=== PATIENT | female | born 1990 | race Caucasian/White ===

== ENCOUNTER 2018-04-15 12:27 | Emergency (ER) | payer BC ==
--- NOTE | 2018-04-15 13:07 | EDPHY ---
H & P Time Seen by Provider: 04/15/18 13:06 HPI/ROS: CHIEF COMPLAINT: Right-sided chest pain HISTORY OF PRESENT ILLNESS: Patient had a sore throat 2 weekends ago while she was in [place]. That resolved. She had a little bit of a right leg cramp last night which is resolved. She woke up at 9:00 a.m. Today with pain on the right side of her chest just to the right of her spine between her shoulder blades which is pretty absent at rest but appears when she takes a deep breath. No radiation, associated with little bit of a cough today. No hemoptysis or leg swelling or fever or chills. REVIEW OF SYSTEMS: Eye: no change in vision ENT: no sore throat Cardiac: No syncope Pulmonary: HPI Abdomen: no vomiting, diarrhea, abdominal pain Musculoskeletal: HPI Skin: no rash Neuro: no headache Constitutional: no fever : no urinary symptoms A comprehensive 10 point review of systems is otherwise negative aside from elements mentioned in the history of present illness. PAST MEDICAL HISTORY: Negative Family history: Negative for DVT or PE except in an uncle who had a clot after prostate cancer surgery Social history: Flew back from [place] on 04/06/2018 General Appearance: Alert and conversant, cooperative. Eyes: No scleral icterus. ENT, Mouth: Normal mucous membranes. Respiratory: Normal respiratory effort, breath sounds equal, lungs are clear to auscultation. Cardiovascular: Regular rate and rhythm. Gastrointestinal: Abdomen is soft and non tender. Neurological: Alert, face symmetric, normal motor and sensory in extremities. Skin: Warm and dry, no rashes. Musculoskeletal: No peripheral edema. No calf tenderness, compartments soft. Psychiatric: Not agitated. Emergency Department course/MDM: Low pretest probability for PE but recent travel. D-dimer screening, EKG, chest imaging. Differential diagnosis considered for chest pain including but not limited to myocardial ischemia, aortic dissection, pericarditis, pulmonary embolus, chest wall pain, pleural inflammation and pulmonary infectious causes. 1355: Results discussed including negative D-dimer, chest x-ray and discharge after results. 1417: Chest x-ray negative, likely inflammatory muscular or other such as pleurisy. Symptomatic treatment and discharge which the patient is in agreement with. Smoking Status: Former smoker Constitutional: Initial Vital Signs Temperature (C) 36.7 C 04/15/18 12:30 Heart Rate 85 04/15/18 12:30 Respiratory Rate 19 04/15/18 12:30 Blood Pressure 132/93 H 04/15/18 12:30 O2 Sat (%) 100 04/15/18 12:30 O2 Delivery Mode Room Air Allergies/Adverse Reactions: azithromycin Allergy (Verified 04/15/18 12:29) Penicillins Allergy (Verified 04/15/18 12:29) sulfamethoxazole [From Septra] Allergy (Verified 04/15/18 12:29) trimethoprim [From Septra] Allergy (Verified 04/15/18 12:29) Home Medications: Medication Instructions Recorded NK [No Known Home Meds] 04/15/18 Medical Decision Making - Diagnostics EKG Interpretation: 12-lead EKG interpreted by me; official reading is in computer system. My interpretation is sinus rhythm rate 82 no ischemic changes. Imaging Results: Imaging Impressions Chest X-Ray 04/15/18 13:55 Impression: No acute pulmonary disease. Imaging: I viewed and interpreted images myself - Data Points Laboratory Results: Laboratory Results 04/15/18 13:07 04/15/18 13:07 04/15/18 04/15/18 04/15/18 13:07 13:07 13:07 WBC RBC Hgb Hct MCV MCH MCHC RDW Plt Count MPV Neut % (Auto) Lymph % (Auto) Bailey % (Auto) Eos % (Auto) Baso % (Auto) Nucleat RBC Rel Count Absolute Neuts (auto) Absolute Lymphs (auto) Absolute Monos (auto) Absolute Eos (auto) Absolute Basos (auto) Absolute Nucleated RBC Immature Gran % Immature Gran # D-Dimer < 0.27 ug/mLFEU ug/mLFEU (0.00-0.50) Sodium 141 mEq/L mEq/L (135-145) Potassium 4.5 mEq/L mEq/L (3.3-5.0) Chloride 108 mEq/L mEq/L (97-110) Carbon Dioxide 26 mEq/l mEq/l (22-31) Anion Gap 7 mEq/L mEq/L (6-14) BUN 8 mg/dL mg/dL (7-23) Creatinine 0.7 mg/dL mg/dL (0.6-1.0) Estimated GFR > 60 Glucose 81 mg/dL mg/dL (70-100) Calcium 9.6 mg/dL mg/dL (8.5-10.4) Total Bilirubin 0.5 mg/dL mg/dL (0.1-1.4) AST 17 IU/L IU/L (14-46) ALT 19 IU/L IU/L (9-52) Alkaline Phosphatase 39 IU/L IU/L (38-126) Total Protein 7.1 g/dL g/dL (6.3-8.2) Albumin 4.4 g/dL g/dL (3.5-5.0) Lipase Cancelled Beta HCG, Qual NEGATIVE 04/15/18 13:07 WBC 8.35 10^3/uL 10^3/uL (3.80-9.50) RBC 4.63 10^6/uL 10^6/uL (4.18-5.33) Hgb 14.9 g/dL g/dL (12.6-16.3) Hct 42.3 % % (38.0-47.0) MCV 91.4 fL fL (81.5-99.8) MCH 32.2 pg pg (27.9-34.1) MCHC 35.2 g/dL g/dL (32.4-36.7) RDW 11.9 % % (11.5-15.2) Plt Count 319 10^3/uL 10^3/uL (150-400) MPV 9.6 fL fL (8.7-11.7) Neut % (Auto) 67.9 % % (39.3-74.2) Lymph % (Auto) 24.0 % % (15.0-45.0) Bailey % (Auto) 6.2 % % (4.5-13.0) Eos % (Auto) 1.0 % % (0.6-7.6) Baso % (Auto) 0.5 % % (0.3-1.7) Nucleat RBC Rel Count 0.0 % % (0.0-0.2) Absolute Neuts (auto) 5.68 10^3/uL 10^3/uL (1.70-6.50) Absolute Lymphs (auto) 2.00 10^3/uL 10^3/uL (1.00-3.00) Absolute Monos (auto) 0.52 10^3/uL 10^3/uL (0.30-0.80) Absolute Eos (auto) 0.08 10^3/uL 10^3/uL (0.03-0.40) Absolute Basos (auto) 0.04 10^3/uL 10^3/uL (0.02-0.10) Absolute Nucleated RBC 0.00 10^3/uL 10^3/uL (0-0.01) Immature Gran % 0.4 % % (0.0-1.1) Immature Gran # 0.03 10^3/uL 10^3/uL (0.00-0.10) D-Dimer Sodium Potassium Chloride Carbon Dioxide Anion Gap BUN Creatinine Estimated GFR Glucose Calcium Total Bilirubin AST ALT Alkaline Phosphatase Total Protein Albumin Lipase Beta HCG, Qual Departure - Departure Disposition: Home, Routine, Self-Care Clinical Impression: Chest pain Qualifiers: Chest pain type: unspecified Qualified Code(s): R07.9 - Chest pain, unspecified Condition: Good Instructions: Chest Pain (ED) Referrals: NONE *PRIMARY CARE P,. [Primary Care Provider] - As per Instructions (Dr. Garcia your PCP)
[2018-04-15 13:43] LABS: PLATELET COUNT 319 10^3/uL (150-400)
[2018-04-15 14:19] VITALS: BP 111/64
--- NOTE | 2018-04-15 14:23 | CPEKG ---
Test Reason : OPEN Blood Pressure : / mmHG Vent. Rate : 082 BPM Atrial Rate : 090 BPM P-R Int : 147 ms QRS Dur : 098 ms QT Int : 381 ms P-R-T Axes : 051 028 035 degrees QTc Int : 445 ms Sinus rhythm Confirmed by Gopi Ferro ([id number]) on 04/15/2018 2:22:13 PM Referred By: Confirmed By:Gopi Ferro
== END 2018-04-15 14:27 | disposition home or self-care (01) ==
DX: R07.9 Chest pain, unspecified (principal)